=== PATIENT | male | born 1950 | race Caucasian/White ===

== ENCOUNTER 2016-10-05 11:04 | Outpatient (CLI) | payer OTHER ==
--- NOTE | 2016-10-05 12:53 | DIAGNOSTIC IMAGING REPORT ---
PROCEDURE: CT THORAX ABD PELVIS W/CONT INDICATION: LYMPHOMA, follow-up. TECHNIQUE: 125 ml of Isovue 300 injected intravenously and axial images were obtained of the entire thorax, abdomen, and pelvis with sagittal and coronal reformations. COMPARISON: CT chest/abdomen/pelvis 06/24/2015. FINDINGS: THORAX: There is no axillary or mediastinal adenopathy. No effusion. Scattered parenchymal cysts. No evidence of pulmonary nodules or infiltrates. Minor atherosclerosis of the aorta. Coronary calcific atherosclerosis. Normal heart size. No pericardial effusion. Old rib fractures. Mild degenerative changes of the spine. ABDOMEN: There is no retroperitoneal or mesenteric adenopathy Liver, gallbladder, pancreas, adrenal glands and the kidneys are unremarkable. Stable ill-defined hypoenhancing area of the spleen inferior pole. Large amount of stool. PELVIS: There is no pelvic or inguinal adenopathy. Stable mild circumferential thickening of the urinary bladder wall. No pelvic mass, inflammatory changes or free fluid. Multiple stable areas of decreased bone marrow attenuation in the spine, pelvis and proximal femurs. IMPRESSION: 1. No evidence of adenopathy 2. Stable osseous lesions 3. Stable splenic lesion 4. Stable circumferential urinary bladder wall thickening which may represent trabeculation versus chronic changes. 5. Obstipation All CT scans at this facility use dose modulation, iterative reconstruction, and/or weight-based dosing when appropriate to reduce radiation dose to as low as reasonably achievable.
== END 2016-10-05 23:00 ==
LOC: CT SRH 11:04
DX: C85.80 Other specified types of non-Hodgkin lymphoma, unspecified site (principal); K59.00 Constipation, unspecified